=== PATIENT | female | born 1965 | race Caucasian/White ===

== ENCOUNTER 2016-11-11 18:42 | Emergency (ER) | payer OTHER ==
[2016-11-11 18:52] VITALS: TEMP 98
[2016-11-11] MEDS ORDERED: Sodium Chloride 0.9% 1,000 ML ONE (19:19)
[2016-11-11 19:44] LABS: SQUAMOUS EPITHIAL < 1 /hpf (0-5); URINE BILIRUBIN NEGATIVE (NEGATIVE); URINE BLOOD NEGATIVE (NEGATIVE); URINE CLARITY Clear (Clear); URINE COLOR Yellow (YELLOW); URINE GLUCOSE (UA) NORMAL (Normal); URINE NITRATE NEGATIVE (NEGATIVE); URINE PROTEIN NEGATIVE (NEGATIVE); URINE UROBILINOGEN NORMAL mg/dL (0.2-1.0)
[2016-11-11 19:45] LABS: URINE BACTERIA RARE (<OCC); URINE LEUKOCYTE ESTERASE NEGATIVE Leu/uL (Negative)
[2016-11-11 19:46] LABS: HCG,QUALITATIVE URINE NEGATIVE (NEGATIVE)
--- NOTE | 2016-11-11 20:03 | C.PDOC ---
Time Seen by Provider: 11/11/16 20:01 Chief Complaint (Nursing): Abdominal Pain Past Medical History Vital Signs: Last Vital Signs Temp 98 F 11/11/16 18:49 Pulse 67 11/11/16 18:49 Resp 20 11/11/16 18:49 BP 132/82 11/11/16 18:49 Pulse Ox 99 11/11/16 20:04 - Medical History PMH: Anxiety, Arthritis, Asthma, Depression, Gastritis, HTN, Hyperlipidemia, Malignancy (Uterine Ca s/p hysterectoly), Pancreatitis Surgical History: Cholecystectomy, Hernia Repair, Tonsillectomy - [facility] Procedures INJECT/INFUSE NEC (05/09/14) NEBULIZER THERAPY (03/05/14) Family History: States: Unknown Family Hx - Social History Hx Tobacco Use: No Hx Alcohol Use: No Hx Substance Use: No - Immunization History Hx Tetanus Toxoid Vaccination: No Hx Influenza Vaccination: No Hx Pneumococcal Vaccination: No ED Course And Treatment O2 Sat by Pulse Oximetry: 99 Disposition - Disposition Forms: [facility] (Czech)
[2016-11-11] MEDS ORDERED: Lidocaine 5% Patch TD STA (20:23)
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
[2016-11-11] MEDS ORDERED: Lidocaine 5% Patch TD ONE (20:30)
[2016-11-11] MEDS ORDERED: Morphine 4 MG/ML VIAL ONE (20:30)
[2016-11-11 21:05] VITALS: BP 133/72; PULSE 60; RESP 18
[2016-11-11 21:11] VITALS: O2SAT 99
== END 2016-11-11 21:26 | disposition home or self-care (01) ==
LOC: C.ER 18:42
DX: G89.29 Other chronic pain (principal); M54.5 Low back pain
CPT/HCPCS: 81001; 84703; 96374; 96375; 99285; J2270; J2765

== ENCOUNTER 2017-01-16 10:33 | Emergency (ER) | payer OTHER ==
[2017-01-16 10:38] VITALS: PULSE 65
[2017-01-16] MEDS ORDERED: Aspirin 325 mg EC Tablets PO STA (11:01)
[2017-01-16] MEDS ORDERED: Nitroglycerin 2% Ointment Foilpak UD TOP STA (11:01)
--- NOTE | 2017-01-16 11:01 | C.PDOC ---
History Of Present Illness 51 Y/O FEMALE PRESENTS TO ED WITH C/O NEW ONSET CHEST PAIN FOR A WEEK. REPORTS HISTORY OF CHRONIC ABDOMINAL PAIN, BACK PAIN, PANCREATITIS. PT DESCRIBES PAIN INTERMITTENT, "TIGHTNESS", AND BETTER WITH REST. DENIES FEVER, CHILLS, COUGH , SOB, NAUSEA, VOMITING. Time Seen by Provider: 01/16/17 10:49 Chief Complaint (Nursing): Abdominal Pain History Per: Patient History/Exam Limitations: no limitations Current Symptoms Are (Timing): Still Present Quality: Tightness Associated Symptoms: denies: Dyspnea, Diaphoresis Alleviating Factors: Rest Recent travel outside of the [place]: No Past Medical History Reviewed: Historical Data, Nursing Documentation, Vital Signs Vital Signs: Last Vital Signs Temp 98.2 F 01/16/17 11:09 Pulse 65 01/16/17 11:09 Resp 20 01/16/17 11:09 BP 132/78 01/16/17 11:09 Pulse Ox 99 01/16/17 12:21 - Medical History PMH: Anxiety, Arthritis, Asthma, Depression, Gastritis, HTN, Hyperlipidemia, Malignancy (Uterine Ca s/p hysterectoly), Pancreatitis Surgical History: Cholecystectomy, Hernia Repair, Tonsillectomy - [facility] Procedures INJECT/INFUSE NEC (05/09/14) NEBULIZER THERAPY (03/05/14) Family History: States: Unknown Family Hx - Social History Hx Tobacco Use: No Hx Alcohol Use: Yes Hx Substance Use: No - Immunization History Hx Tetanus Toxoid Vaccination: No Hx Influenza Vaccination: No Hx Pneumococcal Vaccination: No Review Of Systems Except As Marked, All Systems Reviewed And Found Negative. Constitutional: Negative for: Fever, Chills Cardiovascular: Positive for: Chest Pain. Negative for: Palpitations Respiratory: Negative for: Cough, Shortness of Breath, Wheezing Gastrointestinal: Positive for: Abdominal Pain. Negative for: Vomiting, Diarrhea Musculoskeletal: Positive for: Back Pain Skin: Negative for: Rash Neurological: Negative for: Headache, Dizziness Physical Exam - Physical Exam Appears: Non-toxic, No Acute Distress Skin: Warm, Dry Head: Atraumatic, Normacephalic Oral Mucosa: Moist Chest: Symmetrical, No Tenderness Cardiovascular: Rhythm Regular Respiratory: Normal Breath Sounds, No Rales, No Rhonchi, No Wheezing Gastrointestinal/Abdominal: Soft, No Tenderness, No Guarding, No Rebound Back: Normal Inspection Extremity: Normal ROM, Capillary Refill (< 2 SEC.) Neurological/Psych: Oriented x3, Normal Speech, Normal Cognition ED Course And Treatment - Laboratory Results Result Diagrams: 01/16/17 11:22 01/16/17 11:22 ECG: Interpreted By Me ECG Rhythm: Sinus Rhythm ECG Interpretation: Abnormal Interpretation Of ECG: NEW TWI DIFFUSE COMPARED TO 07/07/16 Rate From EC O2 Sat by Pulse Oximetry: 99 Pulse Ox Interpretation: Normal - Radiology CXR: Interpreted by Me CXR Interpretation: Yes: No Acute Disease Progress - Re-Evaluation Re-evaluation Note: 01/16/17 12:21 ADVISED RISK/BENEFITS OF ADMISSION FOR EVALUATION OF NEW ONSET CHEST PAIN AND ABNORMAL EKG. PATIENT IS AAO x 3, APPROPRIATE, VERBALIZES UNDERSTANDING RISKS OF LEAVING AGAINST MEDICAL ADVICE INCLUDING DETERIORATION, DISABILITY, AND . AMA SIGNED. - Data Reviewed Data Reviewed: Lab, Diagnostic imaging, EKG, Old records - Critical Care Citical Care: Excluding Proc Time Critical Care Time: 90 minutes Disposition Counseled Patient/Family Regarding: Studies Performed, Diagnosis, Need For Followup - Disposition Referrals: YOUR,PMD [Other] Disposition: AGAINST MEDICAL ADVICE Disposition Time: 12:18 Condition: STABLE Additional Instructions: YOU HAVE BEEN OFFERED ADMISSION FOR EVALUATION OF NEW CHEST PAIN AND ABNORMAL EKG FINDINGS. YOU HAVE EXPRESSED VERBAL UNDERSTANDING OF THE RISKS OF LEAVING INCLUDING DISABILITY, DETERIORATION AND . SEE YOUR PMD TINO Instructions: Chest Pain (ED), Against Medical Advice (ED) Forms: [facility] (North Korean) - Clinical Impression Clinical Impression: Chest pain, Abnormal EKG, Chronic back pain - Scribe Statement The provider has reviewed the documentation as recorded by the Scribe SM All medical record entries made by the Scribe were at my direction and personally dictated by me. I have reviewed the chart and agree that the record accurately reflects my personal performance of the history, physical exam, medical decision making, and the department course for this patient. I have also personally directed, reviewed, and agree with the discharge instructions and disposition.
[2017-01-16] MEDS ORDERED: Nitroglycerin 2% Ointment Foilpak UD TOP ONE (11:07)
[2017-01-16] MEDS ORDERED: Aspirin 325 mg EC Tablets PO ONE (11:08)
[2017-01-16 11:11] VITALS: BP 132/78; RESP 20; TEMP 98.2
[2017-01-16 11:29] LABS: BASO # 0.1 K/uL (0.0-0.2); BASO % 0.7 % (0.0-2.0); EOS # 0.1 K/uL (0.0-0.7); EOS % 1.7 % (0.0-4.0); HEMATOCRIT 41.1 % (34.0-47.0); LYMPH # 2.6 K/uL (1.0-4.3); MEAN CELL VOLUME 96.9 fL (81.0-99.0); MEAN PLATELET VOLUME 9.4 fL (7.2-11.7); MONO # 0.4 K/uL (0.0-0.8); MONO % 5.9 % (0.0-10.0); NRBC % 0.1 % (0.0-2.0); RED CELL DISTRIBUTION WIDTH 13.9 % (11.5-14.5); WHITE BLOOD COUNT 7.1 K/uL (4.8-10.8)
[2017-01-16 11:39] LABS: CHLORIDE 102 mmol/L (98-107); POTASSIUM 3.9 mmol/L (3.6-5.2); SODIUM 138 mmol/L (132-148)
[2017-01-16 11:41] VITALS: O2SAT 99
[2017-01-16 11:41] LABS: ALB/GLOB RATIO 1.3 (1.0-2.1); ALKALINE PHOSPHATASE 72 U/L (38-126); AST/SGOT 22 U/L (14-36); BILIRUBIN,TOTAL 0.6 mg/dL (0.2-1.3); BLOOD UREA NITROGEN 12 mg/dL (7-17); CARBON DIOXIDE 25 mmol/L (22-30); GFR AFRICAN-AMERICAN > 60; TOTAL PROTEIN 8.2 g/dL (6.3-8.3)
[2017-01-16 11:42] LABS: ALT/SGPT 25 U/L (9-52); CALCIUM 9.6 mg/dl (8.6-10.4); GLUCOSE,RANDOM 93 mg/dL (65-105); MAGNESIUM 1.8 mg/dL (1.6-2.3)
[2017-01-16] MEDS ORDERED: Oxycodone/Acetaminophen 5/325 mg Tab PO STA (12:17)
--- NOTE | 2017-01-16 12:24 | RAD ---
HISTORY: chest pain COMPARISON: None available. TECHNIQUE: Chest, one view. FINDINGS: LUNGS: No focal consolidation. Please note that chest x-ray has limited sensitivity for the detection of pulmonary masses. PLEURA: No significant pleural effusion identified. No definite pneumothorax . CARDIOVASCULAR: Heart size appears within normal limits. OSSEOUS STRUCTURES: No acute osseous abnormality identified. VISUALIZED UPPER ABDOMEN: Unremarkable. OTHER FINDINGS: None. IMPRESSION: No focal consolidation, significant pleural effusion, or definite pneumothorax identified.
[2017-01-16 12:36] LABS: URINE BACTERIA RARE (<OCC); URINE BILIRUBIN NEGATIVE (NEGATIVE); URINE BLOOD NEGATIVE (NEGATIVE); URINE COLOR Straw (YELLOW); URINE GLUCOSE (UA) NORMAL (Normal); URINE KETONE NEGATIVE (NEGATIVE); URINE LEUKOCYTE ESTERASE NEG Leu/uL (Negative); URINE PROTEIN NEGATIVE (NEGATIVE); URINE UROBILINOGEN NORMAL mg/dL (0.2-1.0); WBC URINE < 1 /hpf (0-5)
== END 2017-01-16 12:25 | disposition left against medical advice (07) ==
LOC: C.ER 10:33
DX: R07.9 Chest pain, unspecified (principal); G89.29 Other chronic pain; M54.9 Dorsalgia, unspecified; R94.31 Abnormal electrocardiogram [ECG] [EKG]

== ENCOUNTER 2017-05-15 10:08 | Emergency (ER) | payer OTHER ==
[2017-05-15 10:09] VITALS: BMI 20.1
--- NOTE | 2017-05-15 10:35 | C.PDOC ---
History Of Present Illness 51 Y/O FEMALE PRESENTS To ED WITH COMPLAINTS OF N/V/D AND ABDOMINAL PAIN SINCE THIS MORNINGnvd. PS SIM PRIOR SX. HISTORY OF CHRONIC ABDOMINAL PAIN, BACK PAIN, PANCREATITIS MULT ER VISITS SINCE 05/10. EXTENSIVE WORKUP INCL LABS AND CT 05.10. +FLU ON 05/13, PT DC W TAMIFLU AND ZPAK BUT COMPLIANT W TAMIFLU ONLY. PS NO LONGER HAS A PMD "I HAVENT BOTHERED TO FIND A REGULAR DOCTOR". MULT PRIOR ER VISITS FOR PAIN COMPLAINTS. exam APPEARS UNCOMFORTABLE BUT DISTRACTABLE ABD SOFT GEN TEND BUT DISTRACTABLE REMAINDER NEG MDM RECENT EXTENSIVE CASTLE INCLUDING CT AND LABS. MULT PRIOR ER VISITS FOR VARIOUS PAIN COMPLAINTS. REPEAT LABS, PAIN RX Time Seen by Provider: 05/15/17 10:32 Chief Complaint (Nursing): Abdominal Pain History Per: Patient History/Exam Limitations: no limitations Onset/Duration Of Symptoms: Days Current Symptoms Are (Timing): Still Present Past Medical History Reviewed: Historical Data, Nursing Documentation, Vital Signs Vital Signs: Last Vital Signs Temp 98.5 F 05/15/17 10:16 Pulse 86 05/15/17 10:16 Resp 16 05/15/17 10:16 BP 139/92 H 05/15/17 10:16 Pulse Ox 97 05/15/17 11:56 - Medical History PMH: Anxiety, Arthritis, Asthma, Depression, Gastritis, HTN, Hypercholesterolemia, Hyperlipidemia, Malignancy (Uterine Ca s/p hysterectoly), Pancreatitis Surgical History: Cholecystectomy, Hernia Repair, Tonsillectomy - [facility] Procedures DILATION OF 1 COR ART WITH DRUG-ELUT INTRA, PERC APPROACH (01/20/17) FLUOROSCOPY OF LEFT HEART USING LOW OSMOLAR CONTRAST (01/20/17) FLUOROSCOPY OF MULT COR ART USING L OSM CONTRAST (01/20/17) INJECT/INFUSE NEC (05/09/14) MEASURE OF CARDIAC SAMPL & PRESSURE, L HEART, PERC APPROACH (01/20/17) NEBULIZER THERAPY (03/05/14) Family History: States: No Known Family Hx - Social History Hx Tobacco Use: No Hx Alcohol Use: Yes Hx Substance Use: No - Immunization History Hx Tetanus Toxoid Vaccination: No Hx Influenza Vaccination: No Hx Pneumococcal Vaccination: No Review Of Systems Constitutional: Negative for: Fever, Chills Cardiovascular: Negative for: Chest Pain Respiratory: Negative for: Shortness of Breath Gastrointestinal: Positive for: Nausea, Vomiting, Abdominal Pain, Diarrhea Skin: Negative for: Rash Physical Exam - Physical Exam Appears: Other (Uncomfortable but distractable) Skin: Warm, Dry, No Rash Head: Atraumatic, Normacephalic Eye(s): bilateral: Normal Inspection Oral Mucosa: Moist Neck: Normal ROM, Supple Cardiovascular: Rhythm Regular Gastrointestinal/Abdominal: Soft, Tenderness (Generalize but distractable), No Guarding, No Rebound Back: No CVA Tenderness Extremity: Normal ROM, Capillary Refill (<2 seconds) Neurological/Psych: Oriented x3 ED Course And Treatment - Laboratory Results Result Diagrams: 05/15/17 11:52 05/15/17 11:52 O2 Sat by Pulse Oximetry: 97 (RA) Pulse Ox Interpretation: Normal Reevaluation Time: 13:26 Reassessment Condition: Improved (SP DILAUDID PO. PT FEELS BETTER WISHES DC HOME ) Medical Decision Making Medical Decision Making: Prior records reviewed: RECENT EXTENSIVE CASTLE INCLUDING CT AND LABS. MULT PRIOR ER VISITS FOR VARIOUS PAIN COMPLAINTS. REPEAT LABS, PAIN RX Plan: Blood work, Zofra, Pepcid, Protonix administered Disposition Counseled Patient/Family Regarding: Studies Performed, Diagnosis, Need For Followup, Rx Given - Disposition Referrals: [facility] [Outside] [facility] [Outside] Disposition: HOME/ ROUTINE Disposition Time: 13:27 Condition: IMPROVED Prescriptions: Metoclopramide [Reglan] 1 tab PO TID PRN #25 tab PRN Reason: Nausea/Vomiting Instructions: Acute Nausea and Vomiting (ED) Forms: [facility] (Lao) - Clinical Impression Clinical Impression: Chronic abdominal pain, Vomiting - Scribe Statement The provider has reviewed the documentation as recorded by the Juan Diego Wang All medical record entries made by the Jenniferibkylah were at my direction and personally dictated by me. I have reviewed the chart and agree that the record accurately reflects my personal performance of the history, physical exam, medical decision making, and the department course for this patient. I have also personally directed, reviewed, and agree with the discharge instructions and disposition.
[2017-05-15 12:00] LABS: BASO % 0.6 % (0.0-2.0); EOS % 0.3 % (0.0-4.0); HEMOGLOBIN 13.5 g/dL (11.0-16.0); LYMPH % 21.2 % (20.0-40.0); MEAN CELL VOLUME 96.2 fL (81.0-99.0); MEAN CORPUSCULAR HEMOGLOBIN 33.5 pg (27.0-31.0); MEAN CORPUSCULAR HGB CONC 34.9 g/dL (33.0-37.0); MEAN PLATELET VOLUME 10.3 fL (7.2-11.7); MONO # 0.3 K/uL (0.0-0.8); MONO % 6.5 % (0.0-10.0); NEUT # 3.5 K/uL (1.8-7.0); NEUT % 71.4 % (50.0-75.0); RBC 4.01 Mil/uL (3.80-5.20); RED CELL DISTRIBUTION WIDTH 13.7 % (11.5-14.5); WHITE BLOOD COUNT 4.9 K/uL (4.8-10.8)
[2017-05-15 12:10] LABS: ALB/GLOB RATIO 1.3 (1.0-2.1); ALBUMIN 4.3 g/dL (3.5-5.0); ALT/SGPT 28 U/L (9-52); AST/SGOT 41 U/L (14-36); BLOOD UREA NITROGEN 10 mg/dL (7-17); CALCIUM 9.1 mg/dl (8.6-10.4); GFR AFRICAN-AMERICAN > 60; GFR NON-AFRICAN AMERICAN > 60; LIPASE 145 U/L (23-300)
[2017-05-15 13:45] VITALS: BP 149/73; PULSE 60; RESP 18; TEMP 98.3; O2SAT 100
== END 2017-05-15 13:45 | disposition home or self-care (01) ==
LOC: C.ER 10:08
DX: G89.29 Other chronic pain (principal); R10.9 Unspecified abdominal pain; R11.10 Vomiting, unspecified
CPT/HCPCS: 80053; 83690; 85025; 96374; 96375; 99284; C9113; J2405

== ENCOUNTER 2017-08-15 20:58 | Emergency (ER) | payer OTHER ==
[2017-08-15 20:59] VITALS: BMI 20.1
[2017-08-15 21:21] VITALS: BP 105/63; PULSE 62; TEMP 98.4; O2SAT 99
[2017-08-15] MEDS ORDERED: Sodium Chloride 0.9% 1,000 ML IV ONE (21:35)
[2017-08-15 21:44] LABS: BASO # 0.1 K/uL (0.0-0.2); EOS # 0.3 K/uL (0.0-0.7); MONO # 0.5 K/uL (0.0-0.8)
[2017-08-15 21:48] LABS: BASO % 0.8 % (0.0-2.0); EOS % 3.4 % (0.0-4.0); HEMOGLOBIN 11.9 g/dL (11.0-16.0); LYMPH # 3.6 K/uL (1.0-4.3); MEAN CELL VOLUME 96.1 fL (81.0-99.0); MEAN CORPUSCULAR HEMOGLOBIN 32.8 pg (27.0-31.0); MEAN CORPUSCULAR HGB CONC 34.1 g/dL (33.0-37.0); MEAN PLATELET VOLUME 8.7 fL (7.2-11.7); MONO % 7.2 % (0.0-10.0); NEUT # 3.1 K/uL (1.8-7.0); NEUT % 40.6 % (50.0-75.0); NRBC % 0.1 % (0.0-2.0); RBC 3.64 Mil/uL (3.80-5.20); RED CELL DISTRIBUTION WIDTH 14.3 % (11.5-14.5); WHITE BLOOD COUNT 7.6 K/uL (4.8-10.8)
[2017-08-15 21:49] LABS: SQUAMOUS EPITHIAL < 1 /hpf (0-5); URINE BILIRUBIN NEGATIVE (NEGATIVE); URINE BLOOD NEGATIVE (NEGATIVE); URINE CLARITY Clear (Clear); URINE COLOR Straw (YELLOW); URINE GLUCOSE (UA) NORMAL (Normal); URINE LEUKOCYTE ESTERASE NEG Leu/uL (Negative); URINE PROTEIN NEGATIVE (NEGATIVE); URINE UROBILINOGEN NORMAL mg/dL (0.2-1.0)
[2017-08-15 21:50] LABS: HCG,QUALITATIVE URINE NEGATIVE (NEGATIVE)
[2017-08-15 22:00] LABS: ALB/GLOB RATIO 1.3 (1.0-2.1); ALBUMIN 4.1 g/dL (3.5-5.0); ALT/SGPT 12 U/L (9-52); AST/SGOT 22 U/L (14-36); BLOOD UREA NITROGEN 14 mg/dL (7-17); CALCIUM 8.9 mg/dl (8.6-10.4); GFR AFRICAN-AMERICAN > 60; GFR NON-AFRICAN AMERICAN 58; LIPASE 201 U/L (23-300)
--- NOTE | 2017-08-15 22:18 | C.PDOC ---
History Of Present Illness 51 year old female, with a past medical history of gastritis, who presents to the emergency department complaining of epigastric and suprapubic abdominal pain onset for x1 week. Patient describes the epigastric pain as a burning sensation similar to prior episodes of gastritis, and the lower abdominal pain as a pressure sensation. She denies any nausea, vomiting, diarrhea, dysuria, hematuria, vaginal bleeding or discharge. No further medical complaints. PMD: None provided. Time Seen by Provider: 08/15/17 21:25 Chief Complaint (Nursing): Abdominal Pain History Per: Patient History/Exam Limitations: no limitations Onset/Duration Of Symptoms: Days (x1 week) Current Symptoms Are (Timing): Still Present Location Of Pain/Discomfort: Epigastric, Suprapubic Quality Of Discomfort: Burning (epigastric), Pressure (suprapubic) Associated Symptoms: denies: Nausea, Vomiting, Diarrhea, Urinary Symptoms ( dysuria, hematuria), Other (vaginal bleeding or discharge) Abnormal Vaginal Bleeding: No Past Medical History Reviewed: Historical Data, Nursing Documentation, Vital Signs Vital Signs: Last Vital Signs Temp 98.4 F 08/15/17 21:17 Pulse 62 08/15/17 21:17 Resp 16 08/15/17 21:17 BP 105/63 08/15/17 21:17 Pulse Ox 99 08/15/17 22:26 - Medical History PMH: Anxiety, Arthritis, Asthma, Depression, Gastritis, HTN, Hypercholesterolemia, Hyperlipidemia, Malignancy (Uterine Ca s/p hysterectoly), Pancreatitis Surgical History: Cholecystectomy, Hernia Repair, Tonsillectomy - [facility] Procedures DILATION OF 1 COR ART WITH DRUG-ELUT INTRA, PERC APPROACH (01/20/17) FLUOROSCOPY OF LEFT HEART USING LOW OSMOLAR CONTRAST (01/20/17) FLUOROSCOPY OF MULT COR ART USING L OSM CONTRAST (01/20/17) INJECT/INFUSE NEC (05/09/14) MEASURE OF CARDIAC SAMPL & PRESSURE, L HEART, PERC APPROACH (01/20/17) NEBULIZER THERAPY (03/05/14) Family History: States: Unknown Family Hx - Social History Hx Tobacco Use: Yes (Heavy smoker >10 cigarettes daily) Hx Alcohol Use: Yes Hx Substance Use: No - Immunization History Hx Tetanus Toxoid Vaccination: No Hx Influenza Vaccination: No Hx Pneumococcal Vaccination: No Review Of Systems Except As Marked, All Systems Reviewed And Found Negative. Gastrointestinal: Positive for: Abdominal Pain (epigastric and suprapubic) Physical Exam - Physical Exam Appears: Other (mild painful distress) Skin: Normal Color, Warm, Dry Head: Atraumatic, Normacephalic Eye(s): bilateral: Normal Inspection, PERRL, EOMI Neck: Normal ROM Cardiovascular: Rhythm Regular, No Murmur Respiratory: Normal Breath Sounds, No Wheezing Gastrointestinal/Abdominal: Tenderness (epigastric), No Guarding, No Rebound, No Other (Blackwell's sign) Back: Normal Inspection, No CVA Tenderness, No Vertebral Tenderness Extremity: Normal ROM (upper and lower extremities), No Deformity, No Swelling Neurological/Psych: Oriented x3 Gait: Steady ED Course And Treatment - Laboratory Results Result Diagrams: 08/15/17 21:40 08/15/17 21:40 O2 Sat by Pulse Oximetry: 99 (RA) Pulse Ox Interpretation: Normal Progress Note: Initial Plan: CMP, Lipase, CBC w/ differential, Toradol 30 mg IVP , Zofran Inj 4 mg IVP, Protonix Inj 40 mg IVP, Sodium Chloride 0.9% 1,000 ml IV 1,000 mls/hr, HCG Qualitative Urine, urinalysis Disposition Counseled Patient/Family Regarding: Studies Performed, Diagnosis, Need For Followup - Disposition Referrals: [facility] [Outside] Disposition: HOME/ ROUTINE Disposition Time: 23:30 Condition: STABLE Additional Instructions: FOLLOW UP WITH YOUR DOCTOR IN 1-2 DAYS USE MEDICATION NEEDED RETURN TO ER IF SYMPTOMS WORSEN Prescriptions: Aluminum Hydroxide/Magnesium [Maalox Plus 30 ml] 30 ml PO BID PRN #1 bottle PRN Reason: EPIGASTRIC PAIN Instructions: Acute Abdomen (Belly Pain), Adult (DC) Forms: [facility] (Fijian) Print Language: AZERI - Clinical Impression Clinical Impression: Abdominal pain, Gastritis - Scribe Statement The provider has reviewed the documentation as recorded by the Jenniferibkylah Mann
[2017-08-15] MEDS ORDERED: Alum-Mag Hydrox-Simethicone Susp (30 mL) PO STA (22:55)
[2017-08-15] MEDS ORDERED: Alum-Mag Hydrox-Simethicone Susp (30 mL) ONE (22:59)
[2017-08-15 23:39] VITALS: RESP 20
== END 2017-08-15 23:37 | disposition home or self-care (01) ==
LOC: C.ER 20:58
DX: K29.70 Gastritis, unspecified, without bleeding (principal); R10.13 Epigastric pain; E78.00 Pure hypercholesterolemia, unspecified; I10 Essential (primary) hypertension; F17.210 Nicotine dependence, cigarettes, uncomplicated
CPT/HCPCS: 80053; 81001; 83690; 84703; 85025; 96361; 96374; 96375; 99284; C9113; J1885; J2405; J7040

== ENCOUNTER 2017-12-03 15:28 | Emergency (ER) | payer OTHER ==
[2017-12-03 15:28] VITALS: BMI 21.9
== END 2017-12-03 16:16 | disposition left against medical advice (07) ==
LOC: C.ER 15:28
DX: Z02.89 Encounter for other administrative examinations (principal); R10.2 Pelvic and perineal pain

== ENCOUNTER 2017-12-04 20:55 | Emergency (ER) | payer OTHER ==
[2017-12-04 20:56] VITALS: BMI 21.9
[2017-12-04 21:09] VITALS: BP 107/73; PULSE 78; RESP 18; TEMP 98.3; O2SAT 98
[2017-12-04] MEDS ORDERED: Sodium Chloride 0.9% 1,000 ML IV ONE ×2 (21:16→22:34)
[2017-12-04] MEDS ORDERED: Iohexol 240 (50 ml) PO ONE (21:18)
--- NOTE | 2017-12-04 21:19 | C.PDOC ---
History Of Present Illness 52 year old female with PMHx of gastritis and pacreatitis presents to the ED c/ o abdominal pain, mostly epigastric area for the past few days. Patient states her pain is radiating to her back. Patient denies alcohol intake. Patient denies fever, chills, nausea, vomit, diarrhea, back pain. Time Seen by Provider: 12/04/17 21:16 Chief Complaint (Nursing): Female Genitourinary History Per: Patient History/Exam Limitations: no limitations Onset/Duration Of Symptoms: Days Current Symptoms Are (Timing): Still Present Severity: Moderate Quality Of Discomfort: "Pain" Associated Symptoms: Urinary Symptoms. denies: Nausea, Vomiting, Diarrhea, Loss Of Appetite Recent travel outside of the [place]: No Additional History Per: Patient Abnormal Vaginal Bleeding: No Past Medical History Reviewed: Historical Data, Nursing Documentation, Vital Signs Vital Signs: Last Vital Signs Temp 98.3 F 12/04/17 21:04 Pulse 78 12/04/17 21:04 Resp 18 12/04/17 21:04 BP 107/73 12/04/17 21:04 Pulse Ox 98 12/04/17 21:24 - Medical History PMH: Anxiety, Arthritis, Asthma, Depression, Gastritis, HTN, Hypercholesterolemia, Hyperlipidemia, Malignancy (Uterine Ca s/p hysterectoly), Pancreatitis, Pneumonia Denies: HIV, Chronic Kidney Disease Surgical History: Cholecystectomy, Coronary Stent (2), Hernia Repair, Tonsillectomy - [facility] Procedures DILATION OF 1 COR ART WITH DRUG-ELUT INTRA, PERC APPROACH (01/20/17) FLUOROSCOPY OF LEFT HEART USING LOW OSMOLAR CONTRAST (01/20/17) FLUOROSCOPY OF MULT COR ART USING L OSM CONTRAST (01/20/17) INJECT/INFUSE NEC (05/09/14) MEASURE OF CARDIAC SAMPL & PRESSURE, L HEART, PERC APPROACH (01/20/17) NEBULIZER THERAPY (03/05/14) Family History: States: Unknown Family Hx - Social History Hx Tobacco Use: Yes (Heavy smoker >10 cigarettes daily) Hx Alcohol Use: No Hx Substance Use: Yes - Immunization History Hx Tetanus Toxoid Vaccination: No Hx Influenza Vaccination: No Hx Pneumococcal Vaccination: No Review Of Systems Constitutional: Negative for: Fever, Chills Cardiovascular: Negative for: Chest Pain, Palpitations Respiratory: Negative for: Cough, Shortness of Breath Gastrointestinal: Positive for: Abdominal Pain. Negative for: Nausea, Vomiting , Diarrhea Skin: Negative for: Rash Neurological: Negative for: Weakness, Numbness Physical Exam - Physical Exam Appears: Non-toxic, In Acute Distress (due to pain) Skin: Normal Color, Warm, Dry Head: Atraumatic, Normacephalic Eye(s): bilateral: Normal Inspection Oral Mucosa: Moist Neck: Normal ROM, Supple Chest: Symmetrical Cardiovascular: Rhythm Regular Respiratory: Normal Breath Sounds, No Rales, No Rhonchi, No Wheezing Gastrointestinal/Abdominal: Soft, Tenderness (epigastric), No Guarding, No Rebound Extremity: Normal ROM, No Tenderness, No Swelling Neurological/Psych: Oriented x3, Normal Speech Gait: Steady ED Course And Treatment - Laboratory Results Result Diagrams: 12/04/17 21:35 12/04/17 21:35 O2 Sat by Pulse Oximetry: 98 (ON RA) Pulse Ox Interpretation: Normal Medical Decision Making Medical Decision Making: Plan: * CT abd/pelvis * Labs * Bentyl 20 mg IM * Protonix 40 mg IVP * IV fluids * Toradol 30 mg IVP * UA Disposition - Disposition Referrals: Non [facility] Provider, [Primary Care Provider] - [facility] [Outside] Disposition: AGAINST MEDICAL ADVICE Disposition Time: 00:06 Condition: STABLE Prescriptions: Ciprofloxacin [Cipro] 1 tab PO BID #14 tab Dicyclomine [Bentyl] 10 mg PO QID #14 cap Instructions: Acute Abdomen (Belly Pain), Adult (DC), Pancreatitis (DC), Urinary Tract Infections in Adults Forms: [facility] (Mongolian) - POA Present On Arrival: None - Clinical Impression Clinical Impression: Abdominal pain, Pancreatitis, UTI (urinary tract infection) - Scribe Statement The provider has reviewed the documentation as recorded by the Scribe Jerry Puentes All medical record entries made by the Scribe were at my direction and personally dictated by me. I have reviewed the chart and agree that the record accurately reflects my personal performance of the history, physical exam, medical decision making, and the department course for this patient. I have also personally directed, reviewed, and agree with the discharge instructions and disposition.
[2017-12-04] MEDS ORDERED: Sodium Chloride 0.9% 1,000 ML ONE (21:37)
[2017-12-04 21:40] LABS: BASO # 0.1 K/uL (0.0-0.2); BASO % 0.7 % (0.0-2.0); EOS # 0.3 K/uL (0.0-0.7); EOS % 3.2 % (0.0-4.0); HEMOGLOBIN 12.4 g/dL (11.0-16.0); LYMPH # 3.1 K/uL (1.0-4.3); LYMPH % 37.9 % (20.0-40.0); MEAN CELL VOLUME 96.6 fL (81.0-99.0); MEAN CORPUSCULAR HEMOGLOBIN 32.5 pg (27.0-31.0); MEAN CORPUSCULAR HGB CONC 33.6 g/dL (33.0-37.0); MEAN PLATELET VOLUME 9.5 fL (7.2-11.7); MONO # 0.7 K/uL (0.0-0.8); MONO % 8.2 % (0.0-10.0); NEUT # 4.1 K/uL (1.8-7.0); NRBC % 0.2 % (0.0-2.0); RBC 3.81 Mil/uL (3.80-5.20); RED CELL DISTRIBUTION WIDTH 14.4 % (11.5-14.5); WHITE BLOOD COUNT 8.2 K/uL (4.8-10.8)
[2017-12-04 21:44] LABS: URINE BACTERIA MOD (<OCC); URINE BILIRUBIN NEGATIVE (NEGATIVE); URINE BLOOD 3+ (NEGATIVE); URINE CLARITY Hazy (Clear); URINE COLOR Yellow (YELLOW); URINE GLUCOSE (UA) NORMAL (Normal); URINE LEUKOCYTE ESTERASE 3+ Leu/uL (Negative); URINE PROTEIN 2+ mg/dL (NEGATIVE); WBC CLUMPS FEW /hpf
[2017-12-04 21:51] LABS: ALB/GLOB RATIO 1.6 (1.0-2.1); ALBUMIN 4.4 g/dL (3.5-5.0); ALT/SGPT 26 U/L (9-52); AST/SGOT 19 U/L (14-36); BLOOD UREA NITROGEN 19 mg/dL (7-17); CALCIUM 9.4 mg/dl (8.6-10.4); GFR NON-AFRICAN AMERICAN > 60; LIPASE 453 U/L (23-300)
[2017-12-04] MEDS ORDERED: Iohexol 240 (50 ml) ONE (21:52)
[2017-12-04] MEDS ORDERED: Ciprofloxacin 400mg/200ml D5W 400 MG/200 ML BAG IVPB STA (22:32)
[2017-12-04] MEDS ORDERED: Iohexol 350mg/ml 100 ML ONE (22:43)
[2017-12-04] MEDS ORDERED: Ciprofloxacin 400mg/200ml D5W 400 MG/200 ML BAG IVPB ONE (22:44)
--- NOTE | 2017-12-05 07:59 | CT ---
Date of service: 12/04/2017 PROCEDURE: CT abdomen and pelvis with intravenous contrast. HISTORY: Abdominal pain COMPARISON: CT dated 04/24/2016 TECHNIQUE: Multiple contiguous axial images were performed through the abdomen and pelvis with intravenous contrast. Subsequently, sagittal and coronal reformatted images were obtained. Radiation dose: Total exam DLP = 202 mGy-cm. This CT exam was performed using one or more of the following dose reduction techniques: Automated exposure control, adjustment of the mA and/or kV according to patient size, and/or use of iterative reconstruction technique. FINDINGS: LOWER THORAX: Question possible cyst near the inferior right pulmonary vein. This is best seen on series 3, images 1-4 measuring 1.2 centimeters with a Hounsfield unit attenuation of 2. This appears to be partially imaged on a prior study dated 02/18/2016. LIVER: Few scattered hypodensities, too small to adequately characterize. Mild intrahepatic biliary ductal dilatation. GALLBLADDER AND BILE DUCTS: Unremarkable. PANCREAS: Grossly preserved. Mild nonspecific prominence the pancreatic duct. Clinical correlation. SPLEEN: Unremarkable. ADRENALS: 1.6 x 1.1 centimeter lesion in the right adrenal gland demonstrating a Hounsfield unit attenuation postcontrast of 102, indeterminate. Further evaluation with contrast-enhanced multiphasic CT or MR is recommended if clinically indicated. KIDNEYS AND URETERS: Unremarkable. No hydronephrosis. No solid mass. VASCULATURE: Unremarkable. No aortic aneurysm. BOWEL: Unremarkable. No obstruction. No gross mural thickening. Few scattered areas of underdistention of the left hemicolon. APPENDIX: No findings to suggest acute appendicitis. PERITONEUM: Unremarkable. No free fluid. No free air. LYMPH NODES: Shotty inguinal and para-aortic lymph nodes. For example, a left inguinal lymph node measures up to 1.5 centimeters. BLADDER: Thickening of the urinary bladder wall which may represent an underlying cystitis. Clinical correlation. REPRODUCTIVE: Unremarkable. BONES: Prominent degenerative changes in the spine. Prominent disc space narrowing at L4-5 with endplate sclerosis. Posterior disc osteophyte complex at the L4-5 level. OTHER FINDINGS: None. IMPRESSION: Thickening of the urinary bladder wall which may represent an underlying cystitis. Clinical correlation. 1.6 centimeter indeterminate right adrenal mass. Further evaluation with contrast-enhanced multiphasic CT or MR is recommended if clinically indicated.
== END 2017-12-05 00:23 | disposition left against medical advice (07) ==
LOC: SUPCPDRO 20:55 → C.ER 20:55
DX: K85.90 Acute pancreatitis without necrosis or infection, unspecified (principal); N39.0 Urinary tract infection, site not specified; R10.13 Epigastric pain
CPT/HCPCS: 74177; 80053; 81001; 83690; 85025; 87086; 87181; 96372; 96374; 96375; 99285; C9113; J0500; J0744; J1885; J7030; Q9966; Q9967

== ENCOUNTER 2017-12-05 11:11 | Emergency (ER) | payer OTHER ==
[2017-12-05 11:25] VITALS: RESP 18; BMI 19.5
[2017-12-05] MEDS ORDERED: Morphine 4 MG/ML VIAL IV STA ×2 (12:05→15:01)
[2017-12-05 12:11] LABS: BASO # 0.1 K/uL (0.0-0.2); EOS # 0.2 K/uL (0.0-0.7); EOS % 3.2 % (0.0-4.0); HEMOGLOBIN 12.1 g/dL (11.0-16.0); LYMPH # 2.7 K/uL (1.0-4.3); LYMPH % 36.7 % (20.0-40.0); MEAN CELL VOLUME 97.3 fL (81.0-99.0); MEAN CORPUSCULAR HEMOGLOBIN 33.1 pg (27.0-31.0); MEAN PLATELET VOLUME 9.4 fL (7.2-11.7); MONO # 0.4 K/uL (0.0-0.8); MONO % 5.3 % (0.0-10.0); NEUT # 3.9 K/uL (1.8-7.0); NEUT % 53.8 % (50.0-75.0); RBC 3.67 Mil/uL (3.80-5.20); WHITE BLOOD COUNT 7.3 K/uL (4.8-10.8)
[2017-12-05 12:15] LABS: SQUAMOUS EPITHIAL 1 /hpf (0-5); URINE BACTERIA RARE (<OCC); URINE BILIRUBIN NEGATIVE (NEGATIVE); URINE BLOOD 1+ (NEGATIVE); URINE CLARITY Clear (Clear); URINE COLOR Straw (YELLOW); URINE GLUCOSE (UA) NORMAL (Normal); URINE LEUKOCYTE ESTERASE NEG Leu/uL (Negative); URINE PROTEIN NEGATIVE (NEGATIVE); URINE UROBILINOGEN NORMAL mg/dL (0.2-1.0)
--- NOTE | 2017-12-05 12:18 | C.PDOC ---
History Of Present Illness 52 y/o female presents to ED called back by ED for abnormal findings on CT scan. Patient was seen yesterday at ED for epigsatric pain, and left AMA, CT scan showed growth in adrenal gland and pancreatitis based on lipase results. At ED patient continues to c/o epigastric and denies nausea, vomiting, diarrhea or any other complaints at this time. Time Seen by Provider: 12/05/17 11:41 Chief Complaint (Nursing): Abdominal Pain History Per: Patient History/Exam Limitations: no limitations Onset/Duration Of Symptoms: Days, Waxing/Waning Location Of Pain/Discomfort: Epigastric Past Medical History Reviewed: Historical Data, Nursing Documentation, Vital Signs Vital Signs: Last Vital Signs Temp 98.1 F 12/05/17 14:59 Pulse 90 12/05/17 14:59 Resp 18 12/05/17 14:59 BP 136/75 12/05/17 14:59 Pulse Ox 97 12/05/17 14:59 - Medical History PMH: Anxiety, Arthritis, Asthma, Depression, Gastritis, HTN, Hypercholesterolemia, Hyperlipidemia, Malignancy (Uterine Ca s/p hysterectoly), Pancreatitis, Pneumonia Surgical History: Coronary Stent (2), Hernia Repair, Tonsillectomy - [facility] Procedures DILATION OF 1 COR ART WITH DRUG-ELUT INTRA, PERC APPROACH (01/20/17) FLUOROSCOPY OF LEFT HEART USING LOW OSMOLAR CONTRAST (01/20/17) FLUOROSCOPY OF MULT COR ART USING L OSM CONTRAST (01/20/17) INJECT/INFUSE NEC (05/09/14) MEASURE OF CARDIAC SAMPL & PRESSURE, L HEART, PERC APPROACH (01/20/17) NEBULIZER THERAPY (03/05/14) Family History: States: No Known Family Hx - Social History Hx Tobacco Use: Yes (Heavy smoker >10 cigarettes daily) Hx Alcohol Use: No Hx Substance Use: Yes - Immunization History Hx Tetanus Toxoid Vaccination: No Hx Influenza Vaccination: No Hx Pneumococcal Vaccination: No Review Of Systems Except As Marked, All Systems Reviewed And Found Negative. Gastrointestinal: Positive for: Abdominal Pain Physical Exam - Physical Exam Appears: Non-toxic, No Acute Distress Skin: Warm, Dry, No Rash Head: Atraumatic, Normacephalic Eye(s): bilateral: Normal Inspection Oral Mucosa: Moist Cardiovascular: Rhythm Regular Respiratory: Normal Breath Sounds, No Rales, No Rhonchi, No Wheezing Gastrointestinal/Abdominal: Soft, Tenderness (epigastric), No Guarding, No Rebound Back: No CVA Tenderness Neurological/Psych: Oriented x3, Normal Speech, Normal Cognition ED Course And Treatment - Laboratory Results Result Diagrams: 12/05/17 11:42 12/05/17 12:43 O2 Sat by Pulse Oximetry: 100 (RA) Pulse Ox Interpretation: Normal Medical Decision Making Medical Decision Making: Assessment: Pancreatitis, Adrenal gland growth Plan: MRI recommended 1537 - discussed results with patient. She does not wish to stay in hospital she states she feels better. recommend follow up with gi within 2 days. copy of mri results given to patient. Disposition - Disposition Referrals: Trent Dubois MD [Staff Provider] - Disposition: HOME/ ROUTINE Disposition Time: 15:38 Condition: STABLE Additional Instructions: follow up with gi doctor within 2 days call to make an appointment take medications as needed return to ER if symptoms worsens or progress Prescriptions: Famotidine [Pepcid] 20 mg PO BID #20 tab Naproxen [Naprosyn] 500 mg PO BID PRN #16 tab PRN Reason: Pain, Moderate (4-7) Ondansetron ODT [Zofran ODT] 4 mg PO TID PRN #12 odt PRN Reason: Nausea/Vomiting Instructions: Acute Abdomen (Belly Pain), Adult (DC) Forms: [facility] (Hungarian), General Discharge Instructions - Clinical Impression Clinical Impression: Abdominal pain, Adrenal adenoma
[2017-12-05 13:00] LABS: ALB/GLOB RATIO 1.7 (1.0-2.1); ALBUMIN 4.2 g/dL (3.5-5.0); ALT/SGPT 30 U/L (9-52); AST/SGOT 36 U/L (14-36); BLOOD UREA NITROGEN 13 mg/dL (7-17); CALCIUM 9.1 mg/dl (8.6-10.4); GFR NON-AFRICAN AMERICAN > 60; LIPASE 150 U/L (23-300)
[2017-12-05] MEDS ORDERED: Gadodiamide 287 MG/ML VIAL (15ML) IV ONE (13:50)
[2017-12-05 15:00] VITALS: BP 136/75; PULSE 90; TEMP 98.1
--- NOTE | 2017-12-05 15:01 | MRI ---
MRI abdomen without/with IV contrast Indication: Abnormal CT scan with right adrenal mass Technique: Multiplanar, multi sequence magnetic resonance images of the abdomen were obtained without and with the administration of intravenous gadolinium using a multi phase abdomen protocol. A total of 977 images submitted for review Comparison: CT of the abdomen and pelvis performed 12/04/17 Findings: 10 mm right adrenal gland mass demonstrates dropout on out of phase imaging compatible with an adenoma. The liver, spleen, pancreas, and left adrenal gland appear grossly unremarkable. The kidneys enhance symmetrically. No hydronephrosis or obstructing calculus identified. No enlarged abdominal lymph nodes are appreciated. Limited views of the inferior thorax appear unremarkable. Impression: 10 mm right adrenal gland mass demonstrates dropout on out of phase imaging compatible with an adenoma.
[2017-12-05 15:39] VITALS: O2SAT 100
== END 2017-12-05 16:01 | disposition home or self-care (01) ==
LOC: C.ER 11:11
DX: D35.01 Benign neoplasm of right adrenal gland (principal); R10.9 Unspecified abdominal pain; E78.00 Pure hypercholesterolemia, unspecified; I10 Essential (primary) hypertension; F17.210 Nicotine dependence, cigarettes, uncomplicated
CPT/HCPCS: 74183; 80053; 81001; 83690; 85025; 96374; 96375; 96376; 99285; A9579; J2270; J2405

== ENCOUNTER 2017-12-06 23:48 | Emergency (ER) | payer OTHER ==
[2017-12-06 23:48] VITALS: BMI 21.9
[2017-12-06 23:59] VITALS: BP 129/71; PULSE 79; RESP 20; TEMP 98.7; O2SAT 100
[2017-12-07 01:41] LABS: HEMOGLOBIN 12.4 g/dL (11.0-16.0); MEAN CELL VOLUME 96.1 fL (81.0-99.0); MONO # 0.6 K/uL (0.0-0.8); RBC 3.75 Mil/uL (3.80-5.20)
[2017-12-07 01:45] LABS: BASO % 0.3 % (0.0-2.0); EOS % 0.2 % (0.0-4.0); LYMPH % 8.8 % (20.0-40.0); MEAN CORPUSCULAR HGB CONC 34.4 g/dL (33.0-37.0); MEAN PLATELET VOLUME 9.7 fL (7.2-11.7); MONO % 5.3 % (0.0-10.0); NEUT # 10.2 K/uL (1.8-7.0); NEUT % 85.4 % (50.0-75.0); PLATELET COUNT 201 K/uL (130-400); RED CELL DISTRIBUTION WIDTH 13.9 % (11.5-14.5); WHITE BLOOD COUNT 11.9 K/uL (4.8-10.8)
[2017-12-07 02:03] LABS: ALB/GLOB RATIO 1.8 (1.0-2.1); ALBUMIN 4.7 g/dL (3.5-5.0); ALT/SGPT 27 U/L (9-52); AST/SGOT 29 U/L (14-36); BLOOD UREA NITROGEN 16 mg/dL (7-17); CALCIUM 9.5 mg/dl (8.6-10.4); GFR NON-AFRICAN AMERICAN > 60; LIPASE 95 U/L (23-300)
[2017-12-07 02:09] LABS: BANDS 1 % (0-2); LYMPHOCYTE 14 % (20-40); MONOCYTE 5 % (0-10); NEUTROPHIL 80 % (50-75); PLATELET ESTIMATE NORMAL (NORMAL); TOTAL CELLS COUNTED 100
[2017-12-07] MEDS ORDERED: Aluminum Hydroxide/Magnesium Hydroxide Susp (30 mL) PO STA (03:29)
[2017-12-07] MEDS ORDERED: Potassium Chloride 20 mEq ER Tab PO STA (03:29)
[2017-12-07] MEDS ORDERED: Potassium Chloride 20 mEq ER Tab PO ONE (04:00)
[2017-12-07] MEDS ORDERED: Aluminum Hydroxide/Magnesium Hydroxide Susp (30 mL) ONE (04:01)
--- NOTE | 2017-12-07 05:19 | C.PDOC ---
History Of Present Illness 52-year-old female presents to the ED for evaluation of abdominal pain. Patient was evaluated several times in the ED for same complaint and underwent full workup. Patient found no relief with pain medication. ShPt reports vomiting [employer] , no fever, diarrhea, dizziness, UTI sx or bleeding. Time Seen by Provider: 12/07/17 00:21 Chief Complaint (Nursing): Abdominal Pain History Per: Patient History/Exam Limitations: no limitations Onset/Duration Of Symptoms: Hrs, Persistent Current Symptoms Are (Timing): Still Present Location Of Pain/Discomfort: Diffuse Associated Symptoms: denies: Nausea, Vomiting Additional History Per: Patient Past Medical History Reviewed: Historical Data, Nursing Documentation, Vital Signs Vital Signs: Last Vital Signs Temp 98.7 F 12/06/17 23:55 Pulse 79 12/06/17 23:55 Resp 20 12/06/17 23:55 BP 129/71 12/06/17 23:55 Pulse Ox 100 12/07/17 23:15 - Medical History PMH: Anxiety, Arthritis, Asthma, Depression, Gastritis, HTN, Hypercholesterolemia, Hyperlipidemia, Malignancy (Uterine Ca s/p hysterectoly), Pancreatitis, Pneumonia Denies: HIV, Chronic Kidney Disease Surgical History: Cholecystectomy, Coronary Stent (2), Hernia Repair, Tonsillectomy - [facility] Procedures DILATION OF 1 COR ART WITH DRUG-ELUT INTRA, PERC APPROACH (01/20/17) FLUOROSCOPY OF LEFT HEART USING LOW OSMOLAR CONTRAST (01/20/17) FLUOROSCOPY OF MULT COR ART USING L OSM CONTRAST (01/20/17) INJECT/INFUSE NEC (05/09/14) MEASURE OF CARDIAC SAMPL & PRESSURE, L HEART, PERC APPROACH (01/20/17) NEBULIZER THERAPY (03/05/14) Family History: States: Unknown Family Hx - Social History Hx Tobacco Use: Yes (Heavy smoker >10 cigarettes daily) Hx Alcohol Use: No Hx Substance Use: Yes - Immunization History Hx Tetanus Toxoid Vaccination: No Hx Influenza Vaccination: No Hx Pneumococcal Vaccination: No Review Of Systems Gastrointestinal: Positive for: Abdominal Pain Physical Exam - Physical Exam Appears: Well, No Acute Distress Skin: Normal Color, Warm, Dry Head: Atraumatic, Normacephalic Eye(s): bilateral: Normal Inspection Oral Mucosa: Moist Neck: Supple Cardiovascular: Rhythm Regular, No Murmur Respiratory: Normal Breath Sounds Gastrointestinal/Abdominal: Soft, Tenderness (mid-epigastric ), No Guarding, No Rebound, Other (abdominal scars ) Back: No CVA Tenderness Extremity: Normal ROM Neurological/Psych: Oriented x3, Normal Speech, Normal Cognition ED Course And Treatment - Laboratory Results Result Diagrams: 12/07/17 01:39 12/07/17 01:39 O2 Sat by Pulse Oximetry: 100 (on RA) Pulse Ox Interpretation: Normal Progress Note: Bloodwork and urinalysis ordered and reviewed. K-dur PO, Maalox PO, Pepcid IVP, Reglan IVP, Toradol IVP, and Zofran IVP given. On re- examination, patient is resting comfortably, showing no signs of distress and is stable for discharge. Patientis advised to follow up with her PMD within 1-2 days for further evaluation and/or return to the ED if symptoms persist or worsen. Disposition Counseled Patient/Family Regarding: Diagnosis, Need For Followup, Rx Given - Disposition Disposition: HOME/ ROUTINE Disposition Time: 05:16 Condition: GOOD Additional Instructions: Please follow up with PMD Continue zofran ODT Continue Pepcid Return to ER if worse Prescriptions: Ondansetron [Zofran Odt] 4 mg PO TID #6 odt Instructions: Gastritis (DC) Forms: [employer] ([place]) - Clinical Impression Clinical Impression: Gastritis - PA / ANY [employer]OD[employer]ER / Resident Statement MD/DO has reviewed & agrees with the documentation as recorded. - Scribe Statement The provider has reviewed the documentation as recorded by the Scribe (Ayde Calhoun) All medical record entries made by the Scribe were at my direction and personally dictated by me. I have reviewed the chart and agree that the record accurately reflects my personal performance of the history, physical exam, medical decision making, and the department course for this patient. I have also personally directed, reviewed, and agree with the discharge instructions and disposition.
== END 2017-12-07 06:00 | disposition home or self-care (01) ==
LOC: C.ER 23:48
DX: K29.70 Gastritis, unspecified, without bleeding (principal); I10 Essential (primary) hypertension; E78.00 Pure hypercholesterolemia, unspecified; E78.5 Hyperlipidemia, unspecified; F17.210 Nicotine dependence, cigarettes, uncomplicated
CPT/HCPCS: 80053; 83690; 85025; 96374; 96375; 96376; 99285; J1885; J2405; J2765